=== PATIENT | male | born 1990 | race African-American/Black ===

== ENCOUNTER 2016-08-17 20:34 | Emergency (ER) | payer BC ==
[~2016-08-17] VITALS: Ht 177.8 cm; Wt 122.0 kg
[2016-08-17 20:41] VITALS: Ht 177.8 cm; Wt 122.0 kg
[2016-08-18] MEDS ORDERED: IBUPROFEN 800 MG TAB PO ONE (00:30)
--- NOTE | 2016-08-18 00:50 | RADRPT ---
PROCEDURE: Right hand. CLINICAL INDICATION: Pain. TECHNIQUE: Three views including PA, lateral and oblique views of the right hand were obtained. COMPARISON: None. FINDINGS: There is a fracture of the base of the fifth metacarpal with mild anterior angulation. There is no dislocation. The joint spaces are within normal limits. Bone mineralization is within normal limit s. There is no radiopaque foreign body or abnormal calcification. IMPRESSION: Fracture of the base of the fifth metacarpal. .Ramos Mathews MD, Date Time Electronically viewed and signed by .Ramos Mathews MD, on 08/18/2016 00:49 .T/
[2016-08-18] MEDS ORDERED: IBUP-1542 PO (01:37)
--- NOTE | 2016-08-18 02:13 | ERD ---
ER Documentation Chief Complaint Date/Time DATE: 08/18/16 TIME: 02:10 Chief Complaint right hand swelling HPI 26-year-old right-handed male with no significant past medical history presents to the ED complaining of right hand swelling that started yesterday after sustaining a crush injury. Reports that he accidentally closed the door onto his right hand. Describes the pain as a throbbing pain and rates it a 6 out of 10. States that his right pinky and thumb are the most painful. Denies any fever, chills, weakness, numbness or tingling, loss of sensation, loss of range of motion. Denies any other injuries. Denies sustaining any lacerations. ROS All systems reviewed and are negative except as per history of present illness. Medications Home Meds Active Scripts Ibuprofen* (Motrin*) 600 Mg Tab, 600 MG PO Q6, #30 TAB Prov:CARRIE JUAN PA-C 08/18/16 Allergies Allergies: Coded Allergies: No Known Allergy (Unverified , 08/17/16) PMhx/Soc Medical and Surgical Hx: pt denies Medical Hx, pt denies Surgical Hx History of Surgery: No Anesthesia Reaction: No Hx Neurological Disorder: No Hx Respiratory Disorders: No Hx Cardiac Disorders: No Hx Psychiatric Problems: No Hx Miscellaneous Medical Probl: No Hx Alcohol Use: No Hx Substance Use: No Hx Tobacco Use: No Smoking Status: Unknown if ever smoked Physical Exam Vitals Vital Signs Date Time Temp Pulse Resp B/P Pulse Ox O2 Delivery O2 Flow Rate FiO2 08/17/16 20:41 97.2 96 20 169/77 98 Physical Exam Const: [id number], well-nourished. In no acute distress. Head: Atraumatic, normocephalic Eyes: Normal Conjunctiva without injection ENT: Normal external ear, nose and mouth. Neck: Full range of motion. No meningismus. Resp: Clear to auscultation bilaterally. No wheezing, rhonchi, rales, or crackles. No accessory muscle use. No retractions. Cardio: Regular rate and rhythm, no murmurs Skin: No petechiae or rashes Back: No midline tenderness. No CVA tenderness. Ext: No cyanosis, or edema. Tenderness to palpation of the right fifth distal phalanx and proximal thumb. Limited range of motion due to pain. Slight edema noted over the dorsal aspect of patient's right hand with no erythema or warmth to touch. Cap refill less than 2 seconds. Distal pulses intact bilaterally. Neur: Awake and alert. Normal gait and coordination. Muscle strength 5/5. Sensation intact bilaterally. Psych: Normal Mood and Affect Results 24 hrs Current Medications Medications (Trade) Dose Ordered Sig/Nam Route PRN Reason Start Time Stop Time Status Last Admin Dose Admin Ibuprofen (Motrin) 800 mg ONCE ONCE PO 08/18/16 00:30 08/18/16 00:31 DC 08/18/16 00:14 Procedures/MDM 26-year-old male with no significant past medical history presents to the ED complaining of right hand swelling. Patient is afebrile and nontoxic- appearing. Patient has normal vital signs. A right hand x-ray was ordered to further evaluate patient. PROCEDURE: Right hand. CLINICAL INDICATION: Pain. TECHNIQUE: Three views including PA, lateral and oblique views of the right hand were obtained. COMPARISON: None. FINDINGS: There is a fracture of the base of the fifth metacarpal with mild anterior angulation. There is no dislocation. The joint spaces are within normal limits. Bone mineralization is within normal limits. There is no radiopaque foreign body or abnormal calcification. IMPRESSION: Fracture of the base of the fifth metacarpal. Patient is placed in an ulnar gutter splint for his fracture of the base of the fifth metacarpal. Splint Assessment: Neurovascularly intact pre and post splint placement with good fit. Patient's extremity symptoms have stabilized while they have been evaluated in the department and are appropriate for outpatient follow up. No evidence of dislocations, compartment syndrome, neurologic injury, vascular injury, open joint, open fracture, tendon laceration, septic arthritis, osteomyelitis, DVT, foreign body, or other emergent conditions. Discharge medications: Ibuprofen Follow up with primary care physician in 1-2 days for a referral to an orthopedic physician. Instructed patient to return to the ED sooner for any worsening symptoms. Patient's questions were answered. Patient understood and agreed with discharge plan. Patient discharged stable. Departure Diagnosis: Primary Impression: Hand fracture Encounter type: initial encounter Fracture type: closed Laterality: right Qualified Code: S62.91XA - Hand fracture, right, closed, initial encounter Condition: Stable Patient Instructions: Treating Hand Fractures, Fracture, Hand (Closed) Referrals: [facility] YOU HAVE RECEIVED A MEDICAL SCREENING EXAM AND THE RESULTS INDICATE THAT YOU DO NOT HAVE A CONDITION THAT REQUIRES URGENT TREATMENT IN THE EMERGENCY DEPARTMENT. FURTHER EVALUATION AND TREATMENT OF YOUR CONDITION CAN WAIT UNTIL YOU ARE SEEN IN YOUR DOCTORS OFFICE WITHIN THE NEXT 1-2 DAYS. IT IS YOUR RESPONSIBILITY TO MAKE AN APPOINTMENT FOR FOLOW-UP CARE. IF YOU HAVE A PRIMARY DOCTOR --you should call your primary doctor and schedule an appointment IF YOU DO NOT HAVE A PRIMARY DOCTOR YOU CAN CALL OUR PHYSICIAN REFERRAL HOTLINE AT IF YOU CAN NOT AFFORD TO SEE A PHYSICIAN YOU CAN CHOSE FROM THE FOLLOWING [facility] [address] [facility]. [facility] [address] [facility] [address] [facility] [facility] [address] [facility] [facility] [address]. [facility] [address] [facility]. [facility] YOU HAVE RECEIVED A MEDICAL SCREENING EXAM AND THE RESULTS INDICATE THAT YOU DO NOT HAVE A CONDITION THAT REQUIRES URGENT TREATMENT IN THE EMERGENCY DEPARTMENT. FURTHER EVALUATION AND TREATMENT OF YOUR CONDITION CAN WAIT UNTIL YOU ARE SEEN IN YOUR DOCTORS OFFICE WITHIN THE NEXT 1-2 DAYS. IT IS YOUR RESPONSIBILITY TO MAKE AN APPOINTMENT FOR FOLOW-UP CARE. IF YOU HAVE A PRIMARY DOCTOR --you should call your primary doctor and schedule and appointment IF YOU DO NOT HAVE A PRIMARY DOCTOR YOU CAN CALL OUR PHYSICIAN REFERRAL HOTLINE AT . IF YOU CAN NOT AFFORD TO SEE A PHYSICIAN YOU CAN CHOSE FROM THE FOLLOWING [facility] INSTITUTIONS: [facility] [address] [place] [address] [facility] [address] [place] [address] [facility] [address] [place] [address] [facility] URGENT CARE/SPECIALTIES [facility] Urgent Care 7 a.m.- 11 p.m. Every Day of the Week NO APPOINTMENT OR AUTHORIZATION NEEDED [facility] Hours: Mon-Fri 9:00 AM - 5:00 PM Additional Instructions: FOLLOW UP WITH YOUR ORTHOPEDIC PHYSICIAN IN 2 DAYs.Return to this facility if you are not improving as expected. CARRIE JUAN PA-C Aug 18, 2016 02:13
== END 2016-08-18 02:02 | disposition home or self-care (01) ==
LOC: FTE 20:34
DX: S62.91XA Unspecified fracture of right hand, initial encounter for closed fracture (principal); W23.0XXA Caught, crushed, jammed, or pinched between moving objects, initial encounter; Y92.9 Unspecified place or not applicable

== ENCOUNTER 2017-08-04 09:00 | Emergency (ER) | END 2017-08-04 11:27 | disposition home or self-care (01) ==

== ENCOUNTER 2017-09-03 08:35 | Emergency (ER) | END 2017-09-03 09:35 | disposition home or self-care (01) ==